=== PATIENT | male | born 1965 | race African-American/Black ===

== ENCOUNTER → 2021-08-22 | Outpatient (CLI) | payer OTHER ==
[2021-08-22 11:32] LABS: BASO % 0.4 % (0.0-1.0); EOS # 0.2 10*3/uL (0.0-0.4); EOS % 4.4 % (1.0-4.0); HEMATOCRIT 44.6 % (42.0-52.0); LYMPH # 1.7 10*3/uL (1.3-4.4); LYMPH % 31.4 % (27.0-41.0); MEAN CELL VOLUME 95.1 fl (80.0-94.0); MEAN CORPUSCULAR HGB 31.1 pg (27.0-31.0); MEAN CORPUSCULAR HGB CONC 32.7 g/dl (33.0-37.0); MONO # 0.5 10*3/uL (0.1-1.0); MONO % 9.9 % (3.0-9.0); NEUT # 2.9 10*3/uL (2.3-7.9); NEUT % 53.7 % (47.0-73.0); PLATELET COUNT AUTOMATED 188 10*3/uL (130-400); RED BLOOD COUNT 4.69 10*6/uL (4.50-5.90); RETICULOCYTE % 2.17 % (0.50-2.50); WHITE BLOOD COUNT 5.4 10*3/uL (4.8-10.8)
[2021-08-22 11:44] LABS: BILIRUBIN Negative (Negative); BLOOD 1+ (Negative); CLARITY Clear (Clear); COLOR Yellow (Yellow); GLUCOSE Negative (Negative); KETONE Negative (Negative); LEUKO ESTERASE Negative (Negative); NITRITE Negative (Negative); UROBILINOGEN 0.2 E.U./dl (0.0-1.0)
[2021-08-22 12:07] LABS: EPITHELIAL CELLS 0-2
[2021-08-22 12:10] LABS: ALBUMIN 3.4 gm/dl (3.1-4.5); ALKALINE PHOSPHATASE 99 U/L (45-117); BUN 14 mg/dl (7-24); CHLORIDE 106 mmol/L (98-107); CHOLESTEROL 160 mg/dL (<200); CREATININE 0.85 mg/dL (0.70-1.30); GAMMA GLUTAMYL TRANSPEPTIDASE 30 U/L (15-85); IRON 71 ug/dL (65-175); LDL CHOLESTEROL 85 mg/dL (9-159); POTASSIUM 3.9 mmol/L (3.5-5.1); SGOT/AST 14 IU/L (3-35); SGPT/ALT 34 U/L (12-78); SODIUM 139 mmol/L (136-145); TOTAL IRON BINDING CAPACITY 347 ug/dl (250-450); TOTAL PROTEIN 7.9 gm/dL (6.4-8.2); TRIGLYCERIDES 100 mg/dl (<150); URIC ACID 6.4 mg/dL (3.5-7.2)
[2021-08-22 12:15] LABS: VITAMIN D, 25-HYDROXY 14.8 ng/mL (30-100)
[2021-08-22 12:16] LABS: THYROID STIM HORMONE (HS) 0.749 uIU/ml (0.358-4.75)
[2021-08-23 05:06] LABS: RHEUMATOID ARTHRITIS FACTOR 13.8 IU/mL (<14.0)
[2021-08-23 14:08] LABS: ANTI-DSDNA ANTIBODIES 1 IU/mL (0-9)
== END | disposition home or self-care (01) ==
LOC: LAB 10:58
PROVIDERS: ATTEND Family Medicine
DX: Z12.5 Encounter for screening for malignant neoplasm of prostate (principal); E78.5 Hyperlipidemia, unspecified; E55.9 Vitamin D deficiency, unspecified; R79.89 Other specified abnormal findings of blood chemistry; R53.83 Other fatigue

== ENCOUNTER 2022-05-06 12:36 | Emergency (ER) | payer OTHER ==
[~2022-05-06] VITALS: Ht 180.3 cm; Wt 142.9 kg
[2022-05-06 14:43] LABS: BASO % 0.3 % (0.0-1.0); EOS # 0.2 10*3/uL (0.0-0.4); EOS % 2.9 % (1.0-4.0); HEMATOCRIT 45.2 % (42.0-52.0); LYMPH # 1.9 10*3/uL (1.3-4.4); LYMPH % 30.7 % (27.0-41.0); MEAN CELL VOLUME 96.2 fl (80.0-94.0); MEAN CORPUSCULAR HGB 31.3 pg (27.0-31.0); MEAN CORPUSCULAR HGB CONC 32.5 g/dl (33.0-37.0); MEAN PLATELET VOLUME 10.4 fl (9.6-12.3); MONO # 0.8 10*3/uL (0.1-1.0); NEUT # 3.4 10*3/uL (2.3-7.9); NEUT % 53.8 % (47.0-73.0); PLATELET COUNT AUTOMATED 197 10*3/uL (130-400); WHITE BLOOD COUNT 6.2 10*3/uL (4.8-10.8)
[2022-05-06 15:04] LABS: ALKALINE PHOSPHATASE 99 U/L (45-117); BUN 13 mg/dl (7-24); CHLORIDE 109 mmol/L (98-107); CREATININE 0.81 mg/dL (0.70-1.30); SGOT/AST 14 IU/L (3-35); SGPT/ALT 32 U/L (12-78); SODIUM 142 mmol/L (136-145); TOTAL PROTEIN 7.6 gm/dL (6.4-8.2)
== END 2022-05-06 16:05 | disposition home or self-care (01) ==
LOC: ED 12:36
PROVIDERS: Nurse Practitioner Family
DX: M79.601 Pain in right arm (principal)

== ENCOUNTER 2022-09-23 05:12 | Emergency (ER) | payer OTHER ==
[~2022-09-23] VITALS: Ht 180.3 cm; Wt 131.5 kg
[2022-09-23] MEDS ORDERED: CYCLOBENZAPRINE10 MG PO (06:35)
[2022-09-23] MEDS ORDERED: PERCOCET 5-3251 EACH PO (06:35)
[2022-09-23] MEDS ORDERED: PREDNISONE20 M1 PO (06:35)
== END 2022-09-23 06:53 | disposition home or self-care (01) ==
LOC: ED 05:12
DX: G58.8 Other specified mononeuropathies (principal); M62.838 Other muscle spasm

== ENCOUNTER → 2022-10-22 | Outpatient (CLI) | payer OTHER ==
[~2022-10-22] MED LIST: CYCLOBENZAPRINE10 MG PO; PERCOCET 5-3251 EACH PO; PREDNISONE20 M1 PO
[2022-10-23 05:06] LABS: HBSAG Negative (Negative); HEP B CORE AB, IGM Negative (Negative); HEPATITIS C ANTIBODY Non Reactive (Non Reactive)
== END | disposition home or self-care (01) ==
LOC: LAB 07:44
PROVIDERS: ATTEND Internal Medicine
DX: Z11.3 Encounter for screening for infections with a predominantly sexual mode of transmission (principal); R53.83 Other fatigue

== ENCOUNTER → 2022-11-12 | Outpatient (CLI) | payer OTHER | END | disposition home or self-care (01) | LOC: RAD 09:20 | PROVIDERS: ATTEND Internal Medicine | DX: M47.27 Other spondylosis with radiculopathy, lumbosacral region (principal); M48.07 Spinal stenosis, lumbosacral region; M54.41 Lumbago with sciatica, right side; M48.03 Spinal stenosis, cervicothoracic region; M25.78 Osteophyte, vertebrae; M54.2 Cervicalgia; Z98.890 Other specified postprocedural states ==

== ENCOUNTER 2024-07-13 20:50 | Emergency (ER) | payer OTHER ==
[~2024-07-13] VITALS: Ht 177.8 cm; Wt 117.0 kg
[2024-07-13] MEDS ORDERED: SILDENAFIL CIT100 MG PO (20:55)
[2024-07-13] MEDS ORDERED: LOSARTAN POTAS100 M1 PO (20:55)
[2024-07-13] MEDS ORDERED: GABAPENTIN600 MG PO (20:55)
[2024-07-13] MEDS ORDERED: Phenylephrine HydrochloridE 0.5% NASAL 15 ML BOTTLE NAS ONE (20:55)
[2024-07-13] MEDS ORDERED: OZEMPIC2 MG/0.71 SQ (20:55)
[2024-07-13] MEDS ORDERED: METFORMIN HYDR500 MG PO (20:56)
[2024-07-13 21:28] LABS: BASO % 0.3 % (0.0-1.0); EOS # 0.1 10*3/uL (0.0-0.4); EOS % 1.3 % (1.0-4.0); MEAN CELL VOLUME 97.3 fl (80.0-94.0); MEAN CORPUSCULAR HGB 31.4 pg (27.0-31.0); MEAN CORPUSCULAR HGB CONC 32.3 g/dl (33.0-37.0); MEAN PLATELET VOLUME 8.8 fl (9.6-12.3); MONO # 0.9 10*3/uL (0.1-1.0); MONO % 11.3 % (3.0-9.0); NEUT # 4.5 10*3/uL (2.3-7.9); NEUT % 60.6 % (47.0-73.0); PLATELET COUNT AUTOMATED 186 10*3/uL (130-400); RED BLOOD COUNT 4.01 10*6/uL (4.50-5.90); RED CELL DISTRI WIDTH 14.5 % (0-14.5); WHITE BLOOD COUNT 7.5 10*3/uL (4.8-10.8)
[2024-07-13 21:47] LABS: BUN 32 mg/dl (9-23); CHLORIDE 104 mmol/L (98-107)
== END 2024-07-13 22:06 | disposition home or self-care (01) ==
LOC: ED 20:50
PROVIDERS: Internal Medicine
DX: R04.0 Epistaxis (principal); I10 Essential (primary) hypertension; Z79.899 Other long term (current) drug therapy

== ENCOUNTER 2024-07-14 11:17 | Emergency (ER) | payer OTHER ==
[~2024-07-14] VITALS: Ht 177.8 cm; Wt 117.0 kg
[~2024-07-14 11:17] MED LIST changes: +GABAPENTIN600 MG PO; +LOSARTAN POTAS100 M1 PO; +METFORMIN HYDR500 MG PO; +OZEMPIC2 MG/0.71 SQ; +SILDENAFIL CIT100 MG PO
[2024-07-14] MEDS ORDERED: TRANEXAMIC ACID 1,000 MG/10 ML VIAL NAS ONE (11:45)
[2024-07-14 11:58] LABS: BASO % 0.1 % (0.0-1.0); EOS # 0.1 10*3/uL (0.0-0.4); EOS % 1.3 % (1.0-4.0); HEMATOCRIT 35.5 % (42.0-52.0); MEAN CORPUSCULAR HGB 31.4 pg (27.0-31.0); MEAN CORPUSCULAR HGB CONC 32.4 g/dl (33.0-37.0); MEAN PLATELET VOLUME 9.2 fl (9.6-12.3); MONO # 1.1 10*3/uL (0.1-1.0); MONO % 12.7 % (3.0-9.0); NEUT # 4.3 10*3/uL (2.3-7.9); PLATELET COUNT AUTOMATED 206 10*3/uL (130-400); RED BLOOD COUNT 3.66 10*6/uL (4.50-5.90); RED CELL DISTRI WIDTH 14.6 % (0-14.5); WHITE BLOOD COUNT 8.7 10*3/uL (4.8-10.8)
[2024-07-14 12:16] LABS: BUN 30 mg/dl (9-23); CHLORIDE 105 mmol/L (98-107); POTASSIUM 4.4 mmol/L (3.4-5.1)
[2024-07-14] MEDS ORDERED: Phenylephrine Hydrochloride 0.25% Nasal 40 ml bottle NAS ONE (13:20)
== END 2024-07-14 13:04 | disposition home or self-care (01) ==
LOC: ED 11:17
PROVIDERS: Nurse Practitioner Family
DX: R04.0 Epistaxis (principal); I10 Essential (primary) hypertension; E11.40 Type 2 diabetes mellitus with diabetic neuropathy, unspecified

== ENCOUNTER 2024-07-18 12:38 | Emergency (ER) | payer OTHER ==
[~2024-07-18] VITALS: Ht 177.8 cm; Wt 117.0 kg
== END 2024-07-18 14:13 | disposition home or self-care (01) ==
LOC: ED 12:38
DX: R04.0 Epistaxis (principal); Z44.8 Encounter for fitting and adjustment of other external prosthetic devices; Z79.899 Other long term (current) drug therapy; Z79.84 Long term (current) use of oral hypoglycemic drugs

== ENCOUNTER 2024-08-16 12:03 | Emergency (ER) | payer OTHER ==
[~2024-08-16] VITALS: Ht 180.3 cm; Wt 115.7 kg
== END 2024-08-16 14:19 | disposition home or self-care (01) ==
LOC: ED 12:03
DX: T33.832A Superficial frostbite of left toe(s), initial encounter (principal); T33.831A Superficial frostbite of right toe(s), initial encounter; I10 Essential (primary) hypertension; E11.9 Type 2 diabetes mellitus without complications; F12.10 Cannabis abuse, uncomplicated; F17.210 Nicotine dependence, cigarettes, uncomplicated